=== PATIENT | male | born 1995 | race Caucasian/White ===

== ENCOUNTER 2020-08-26 15:44 | Emergency (ER) | payer OTHER, SELFPAY ==
--- NOTE | ~2020-08-26 | XR_ITS ---
EXAMINATION: XR hand RT min 3V DATE: 08/26/2020 16:06 INDICATION: Ulnar-sided right hand pain TECHNIQUE: Posteroanterior, oblique and lateral views of the right hand were obtained. COMPARISON: None. FINDINGS: Alignment is normal. No acute fracture. Joint spaces are normal. Chronic appearing tiny ossicle at th e ulnar base of the fifth metacarpal with corticated margins and no evident donor site which could re present either a degenerative loose body or heterotopic ossicle related to chronic injury. Mild soft tissue swelling along the ulnar side of the hand. IMPRESSION: 1. No acute osseous abnormality. Reviewed, dictated and finalized at [facility]. [employer]
[2020-08-26 15:56] VITALS: BP 133/75; PULSE 84; RESP 16; TEMP 37.1; O2SAT 98
[2020-08-26 16:22] VITALS: BP 133/75; PULSE 84; RESP 16; TEMP 37.1; O2SAT 98
--- NOTE | 2020-08-26 16:41 | ED.UPPEXIN ---
HPI - Extremity Injury (Upper) General Chief Complaint: Extremity Injury, Upper Stated Complaint: righ hand pain Time Seen by Provider: 08/26/20 16:35 Source: patient and RN notes reviewed Mode of arrival: ambulatory Limitations: no limitations History of Present Illness HPI narrative: 24-year-old male presents concern for right hand swelling and pain after he hit his hand on a hard object. Reports swelling to the dorsal aspect of the hand. Denies intervention. Denies decreased sensation, strength. complaint: injury to: right and hand Related Data Home Medications Medication Instructions Recorded Confirmed No Home Medications 08/26/20 08/26/20 Allergies Allergy/AdvReac Type Severity Reaction Status Date / Time Penicillins Allergy Itching Verified 08/26/20 16:22 Review of Systems Review of Systems: Narrative: CONSTITUTIONAL: Denies malaise, chills, sweats, or fever. CARDIOVASCULAR: Denies chest pain, palpitations, or edema. RESPIRATORY: Denies cough or dyspnea. SKIN: Denies open skin, abrasion MUSCULOSKELETAL: Reports right hand pain, swelling, redness NEUROLOGIC: Denies numbness, weakness, All systems reviewed & are unremarkable except as noted in HPI and below PMFSH Comments At time of signature, agree with nursing past medical, surgical, social and family history. There is no relevant family history pertinent to the presenting complaint Exam Narrative: Exam Narrative: GENERAL: Well-appearing, well-nourished, and in no acute distress. HEAD: Normocephalic EYES: PERRLA, conjunctivae clear NECK: Supple. CHEST: Speaks in full sentences. No respiratory distress. HEART: Regular rate and rhythm. Normal and equal peripheral pulses. EXTREMITIES: Right hand and digits of hand have normal strength and sensation. 5/5 strength with digit flexion, extension. Range of motion normal. No clubbing, cyanosis noted. Dorsal edema and tenderness noted beneath digits 4 and 5. Skin intact. Normal digital cascade with flexion of fingers, median, ulnar and radial nerve intact. Normal sensation of each side of finger. Can perform 'okay' sign, 'cross over finger test of index and middle fingers' and 'thumbs up' sign. No scissoring. Normal thumb opposition. Good capillary refill and radial pulse. Distal capillary refill less than 3 seconds. SKIN: Warn, dry, intact, pink. No rash NEURO: Alert and oriented x3. PSYCH: Normal mood and affect Course Course Emergency Course: Patient is aware of diagnosis, understands and agrees to treatment plan. Anticipatory guidance given. Patient agrees to follow-up as directed and is aware of reasons to seek care at the emergency department. Portions of this record may have been created with voice recognition software Vital Signs Vital signs: Vital Signs Temperature 98.7 F 08/26/20 15:56 Pulse Rate 84 08/26/20 15:56 Respiratory Rate 16 08/26/20 15:56 Blood Pressure 133/75 08/26/20 15:56 Pulse Oximetry 98 08/26/20 15:56 Temperature 98.7 F 08/26/20 16:22 Pulse Rate 84 08/26/20 16:22 Respiratory Rate 16 08/26/20 16:22 Blood Pressure 133/75 08/26/20 16:22 Pulse Oximetry 98 08/26/20 16:22 Reviewed. MDM - Extremity Injury (Upper) MDM Narrative Medical decision making narrative: Patients injury and pain is consistent with musculoskeletal etiology. No signs of neurological or vascular compromise on exam. Compartments and tissues are soft without signs of compartment syndrome. Pain is felt appropriate for further evaluation on an outpatient basis. Imaging Data My impression: Images reviewed, interpreted by radiologist, agree, see report. Radiologist's impression: EXAMINATION: XR hand RT min 3V DATE: 08/26/2020 16:06 INDICATION: Ulnar-sided right hand pain TECHNIQUE: Posteroanterior, oblique and lateral views of the right hand were obtained. COMPARISON: None. FINDINGS: Alignment is normal. No acute fracture. Joint spaces are normal. Chronic appearing tiny
== END 2020-08-26 16:48 | disposition home or self-care (01) ==
PROVIDERS: Emergency Provider Nurse Practitioner
DX: S69.91XA Unspecified injury of right wrist, hand and finger(s), initial encounter (principal); W22.8XXA Striking against or struck by other objects, initial encounter
CPT/HCPCS: 73130; 99213; G0463